=== PATIENT | female | born 1985 | race Caucasian/White ===

== ENCOUNTER 2023-12-13 12:04 | Emergency (ER) | payer SELFPAY ==
[2023-12-13 12:06] VITALS: BP 119/77
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
[2023-12-13] MEDS: ADACEL 0.5 ML IM (14:37)
[2023-12-13] MEDS: MOTRIN 600 MG PO (14:37)
[2023-12-13 14:54] VITALS: BP 116/75
== END 2023-12-13 14:55 | disposition home or self-care (01) ==
LOC: EMR 12:04
PROVIDERS: EMERGENCY PHYSICIAN Emergency Medicine; FAMILY PHYSICIAN Family Medicine
DX: S16.1XXA Strain of muscle, fascia and tendon at neck level, initial encounter (principal); S60.222A Contusion of left hand, initial encounter; S00.31XA Abrasion of nose, initial encounter; V43.52XA Car driver injured in collision with other type car in traffic accident, initial encounter; Z23 Encounter for immunization
CPT/HCPCS: 90471; 99284; 70450; 73110; 90715